=== PATIENT | female | born 1980 | race African-American/Black ===

== ENCOUNTER 2017-09-27 20:18 | Inpatient (IN) | payer OTHER ==
[~2017-09-27] VITALS: Ht 175.3 cm; Wt 72.6 kg
--- NOTE | ~2017-09-27 | PATH ---
[facility] [place] [address] PATHOLOGY RPT PROCEDURE Name: CRYSTAL RAY Shilpa Room #: 450-P [facility] IN M.R.#: [id number] Admission: 09/27/17 Date of : 76 Discharge: 10/01/17 Report #: [id number] Path Case #: [id number] [facility] Accession Number: [id number] . 01 Material submitted: . ENDOMETRIUM . 01 Clinical history: . Severe anemia . 02 Diagnosis: Uterus, endometrial biopsy: - Glandular and stromal breakdown. - Negative for hyperplasia, atypia or malignancy. - Specimen predominantly (90% comprised of blood), history of heavy menstruation. (IUV:michael; 10/02/2017) QMS/10/02/2017 . 02 Electronically signed: . Ciera Muñoz MD, Pathologist NPI- [id number] . 01 Gross description: . Received in formalin labeled "Kynyatta Lilly, endometrium" and consists of a 3.0 x 3.0 x 2.0 cm aggregate of dark red tissue and blood clot which is entirely submitted A1-A4. (SOO; 10/01/2017) JBR/JBR . 02 Pathologist provided ICD-10: N85.9, D64.9 . 02 CPT . 884828 Performed at: [address], [place] [id number] MD Stone Davis MD Phone: [phone] Performed at: [address] [id number] MD Ciera Muñoz MD Phone: [phone]
--- NOTE | ~2017-09-27 | EKG ---
[address] [place] [place] [address] ELECTROCARDIOGRAM REPORT Name: CRYSTAL RAY Room #: 450-P [facility] IN [facility].#: [id number] Admission: 09/27/17 Attend Phys: Power Michael MD Discharge: Date of : 76 Report #: [id number] THIS REPORT FOR: //name// [facility] ED Test Date: 2017-09-27 Test Time: 22:06:56 Pat Name: CRYSTAL RAY Department: Room: Gender: F Library Circulation Assistant: AIDAN : 1980 Requested By: Tu Coon Order Number: [id number] MD: Emerson Will Measurements Intervals [place] Rate: 83 P: 64 NE: 162 QRS: 60 QRSD: 96 T: 28 QT: 372 QTc: 437 Interpretive Statements Sinus rhythm Normal tracing No previous ECG available for comparison Electronically Signed On 09-29-2017 14:00:33 CDT by Emerson Will [email or web address] <ELECTRONICALLY SIGNED> By: Emerson Will MD, [facility]IN [facility] 09/29/17 1400 2206 2206 Emerson Will MD, FACC /EPI
[2017-09-27 21:45] LABS: MCH 16.8 pg (26.0-34.0)
[2017-09-27 21:47] LABS: HEMATOCRIT 21.6 % (37.0-47.0); MCHC 29.3 g/dL (28.0-37.0); MCV 57.2 fL (80.0-100.0); PLATELET COUNT 277 thou/uL (150-400); RBC 3.78 mil/uL (4.20-5.00); RDW 22.3 % (10.5-14.5); WBC 6.2 thou/uL (4.0-11.0)
[2017-09-27 21:51] LABS: HEMOGLOBIN 6.3 gm/dL (12.0-15.0)
[2017-09-27 21:51] LABS: URINE BILIRUBIN NEGATIVE (Negative); URINE BLOOD 3+ (Negative); URINE CLARITY CLEAR; URINE COLOR YELLOW; URINE GLUCOSE-RANDOM* NEGATIVE (Negative); URINE KETONES NEGATIVE (Negative); URINE LEUKOCYTES-REFLEX NEGATIVE (Negative); URINE PROTEIN (DIPSTICK) TRACE (Negative); URINE SPECIFIC GRAVITY >= 1.030 (1.005-1.035); URINE UROBILINOGEN 0.2 E.U./dl (0.2-1.0)
[2017-09-27 21:53] LABS: URINE NITRITE-REFLEX POSITIVE (Negative)
[2017-09-27 21:58] LABS: AMORPHOUS URATES Many /LPF (None Seen); CASTS None Seen /LPF (None Seen); SQUAMOUS 0-3 Few /LPF (0-3); URINE RBC 3-10 Few /HPF (0-2)
[2017-09-27 21:59] LABS: URINE WBC-REFLEX 0-5 Rare /HPF (0-5)
[2017-09-27 22:19] LABS: ABSOLUTE NEUTROPHILS 3.8 thou/uL (1.4-8.2)
[2017-09-27 22:21] LABS: ANISOCYTOSIS 2+; OVALOCYTES FEW; SCHISTOCYTES OCCASIONAL
[2017-09-27 22:22] LABS: HYPOCHROMASIA 2+; MICROCYTES 3+; POLYCHROMASIA OCCASIONAL
[2017-09-27 22:37] LABS: INR 1.1; PROTIME 11.3 Seconds (9.3-11.4)
[2017-09-27 23:00] VITALS: BP 109/64
[2017-09-27 23:16] LABS: ANION GAP 10 mmol/L (7-16); BUN 9 mg/dL (7-18); CALCIUM 8.1 mg/dL (8.5-10.1); CHLORIDE 106 mmol/L (98-107); CO2 24 mmol/L (21-32); CREATININE 0.8 mg/dL (0.6-1.0); GLUCOSE 93 mg/dL (74-106); POTASSIUM 3.2 mmol/L (3.5-5.1); SODIUM 140 mmol/L (136-145)
[2017-09-27 23:20] LABS: ABSOLUTE RETIC COUNT 0.0462 10^6/uL; OBSERVED RETIC COUNT 1.2 % (0.6-2.6)
[2017-09-27 23:24] LABS: ALBUMIN 3.6 g/dL (3.4-5.0); DIRECT BILIRUBIN < 0.1 mg/dL (<0.1-0.3); MAGNESIUM 1.8 mg/dL (1.8-2.4); SGOT 21 U/L (15-37); SGPT 14 U/L (30-65); TOTAL BILIRUBIN 0.3 mg/dL (<0.1-1.0); TOTAL PROTEIN 7.4 g/dL (6.4-8.2); TROPONIN-I <0.06 ng/mL (<0.06)
[2017-09-27 23:25] VITALS: BP 95/55
[2017-09-27 23:31] LABS: % SATURATION 3 % (20-39); IRON 13 ug/dL (50-170); TIBC 385 ug/dL (250-450)
[2017-09-27 23:58] VITALS: BP 108/69
[2017-09-28 00:24] LABS: FERRITIN < 1.0 ng/mL (8-252); FOLIC ACID 16.2 ng/mL (8.6-58.9)
[2017-09-28 02:27] VITALS: BP 104/64
[2017-09-28 04:02] VITALS: BP 97/66
[2017-09-28 05:33] LABS: HEMATOCRIT 23.8 % (37.0-47.0); HEMOGLOBIN 7.1 gm/dL (12.0-15.0); MCH 17.9 pg (26.0-34.0); MCHC 29.9 g/dL (28.0-37.0); MCV 59.9 fL (80.0-100.0); RBC 3.97 mil/uL (4.20-5.00); WBC 4.9 thou/uL (4.0-11.0)
[2017-09-28 05:51] LABS: CALCIUM 7.9 mg/dL (8.5-10.1); CREATININE 0.8 mg/dL (0.6-1.0); POTASSIUM 3.4 mmol/L (3.5-5.1)
[2017-09-28 07:20] VITALS: BP 91/54
[2017-09-28 16:00] VITALS: BP 107/66
[2017-09-28 19:25] VITALS: BP 102/60
[2017-09-29 04:00] VITALS: BP 103/65
[2017-09-29 05:27] LABS: HEMATOCRIT 23.8 % (37.0-47.0); HEMOGLOBIN 7.2 gm/dL (12.0-15.0); MCH 18.4 pg (26.0-34.0); MCHC 30.3 g/dL (28.0-37.0); MCV 60.7 fL (80.0-100.0); RBC 3.92 mil/uL (4.20-5.00); RDW 24.7 % (10.5-14.5); WBC 5.6 thou/uL (4.0-11.0)
[2017-09-29 05:41] LABS: ALBUMIN 3.1 g/dL (3.4-5.0); CALCIUM 8.1 mg/dL (8.5-10.1); CREATININE 0.7 mg/dL (0.6-1.0); TOTAL BILIRUBIN 0.1 mg/dL (<0.1-1.0); TOTAL PROTEIN 6.9 g/dL (6.4-8.2)
[2017-09-29 07:12] VITALS: BP 88/49
[2017-09-29 15:18] VITALS: BP 103/62
[2017-09-29 19:04] VITALS: BP 111/69
[2017-09-30 04:27] VITALS: BP 103/63
[2017-09-30 05:48] LABS: HEMATOCRIT 24.9 % (37.0-47.0); HEMOGLOBIN 7.4 gm/dL (12.0-15.0); MCH 18.4 pg (26.0-34.0); MCHC 29.6 g/dL (28.0-37.0); MCV 62.2 fL (80.0-100.0); WBC 6.7 thou/uL (4.0-11.0)
[2017-09-30 08:00] VITALS: BP 103/62
[2017-09-30 16:00] VITALS: BP 100/63
[2017-09-30 19:01] VITALS: BP 108/72
[2017-10-01 03:54] VITALS: BP 111/62
[2017-10-01 08:00] VITALS: BP 104/61
[2017-10-01 10:06] LABS: HEMATOCRIT 27.1 % (37.0-47.0); MCH 18.6 pg (26.0-34.0); MCHC 29.3 g/dL (28.0-37.0); MCV 63.4 fL (80.0-100.0); RBC 4.29 mil/uL (4.20-5.00); WBC 9.3 thou/uL (4.0-11.0)
[2017-10-01 10:19] LABS: ALBUMIN 3.6 g/dL (3.4-5.0); CALCIUM 8.8 mg/dL (8.5-10.1); CREATININE 0.7 mg/dL (0.6-1.0); MAGNESIUM 1.7 mg/dL (1.8-2.4); POTASSIUM 3.3 mmol/L (3.5-5.1); TOTAL BILIRUBIN 0.1 mg/dL (<0.1-1.0); TOTAL PROTEIN 7.7 g/dL (6.4-8.2)
[2017-10-01] MEDS ORDERED: PROVERA10 MG PO (11:34)
[2017-10-01] MEDS ORDERED: IRON325 PO (11:35)
[2017-10-01 11:47] VITALS: BP 104/61
[2017-10-01 12:13] LABS: HGB SOLUBILITY Negative (Negative)
== END 2017-10-01 12:50 | disposition home or self-care (01) | DRG 760 ==
LOC: ER 20:18 → EROBS 22:00 → 4W 22:00
PROVIDERS: Emergency Medicine; Hospitalist; Internal Medicine; Nurse Practitioner Family
PROC: 30233N1 Transfusion of Nonautologous Red Blood Cells into Peripheral Vein, Percutaneous Approach (ICD-10-PCS; principal; 2017-09-28)
DX: N92.0 Excessive and frequent menstruation with regular cycle (principal); N39.0 Urinary tract infection, site not specified; D50.0 Iron deficiency anemia secondary to blood loss (chronic); F17.210 Nicotine dependence, cigarettes, uncomplicated; Z91.14 Patient's other noncompliance with medication regimen; Z83.3 Family history of diabetes mellitus; Z82.5 Family history of asthma and other chronic lower respiratory diseases; Z83.79 Family history of other diseases of the digestive system
CPT/HCPCS: 10040

== ENCOUNTER 2018-01-06 10:37 | Emergency (ER) | payer OTHER ==
[~2018-01-06] VITALS: Ht 175.3 cm; Wt 83.9 kg
--- NOTE | ~2018-01-06 | EKG ---
[address] [address] ELECTROCARDIOGRAM REPORT Name: CRYSTAL RAY Room #: [facility]#: [id number] Admission: 01/06/18 Attend Phys: Discharge: 01/06/18 Date of : 76 Report #: [id number] THIS REPORT FOR: //name// [facility] ED Test Date: 2018-01-06 Test Time: 11:23:00 Pat Name: CRYSTAL RAY Department: Room: Gender: F Pre Press Proofer: rachael : 1980 Requested By: Tu Coon Order Number: [id number] MD: Srinivasa Tidwell Measurements Intervals [place] Rate: 94 P: 54 CT: 141 QRS: 33 QRSD: 92 T: 32 QT: 353 QTc: 442 Interpretive Statements Sinus rhythm Compared to ECG 09/27/2017 22:06:56 No significant changes Electronically Signed On 01-07-2018 17:04:56 CDT by Srinivasa Tidwell [email or web address] <ELECTRONICALLY SIGNED> By: Srinivasa Tidwell MD 01/07/18 1704 1123 22 Srinivasa Tidwell MD /GUS
[~2018-01-06 10:37] MED LIST: IRON325 PO; PROVERA10 MG PO
[2018-01-06 11:09] LABS: URINE BILIRUBIN NEGATIVE (Negative); URINE BLOOD NEGATIVE (Negative); URINE CLARITY CLEAR; URINE COLOR YELLOW; URINE GLUCOSE-RANDOM* NEGATIVE (Negative); URINE KETONES NEGATIVE (Negative); URINE LEUKOCYTES-REFLEX 1+ (Negative); URINE NITRITE-REFLEX NEGATIVE (Negative); URINE PROTEIN (DIPSTICK) NEGATIVE (Negative); URINE SPECIFIC GRAVITY 1.015 (1.005-1.035); URINE UROBILINOGEN 0.2 E.U./dl (0.2-1.0)
[2018-01-06 11:28] LABS: CASTS None Seen /LPF (None Seen); CRYSTALS None Seen /LPF (None Seen); SQUAMOUS >10 Many /LPF (0-3)
[2018-01-06 11:31] LABS: URINE RBC None Seen /HPF (0-2); URINE WBC-REFLEX 6-15 Few /HPF (0-5)
[2018-01-06 11:32] LABS: BACTERIA-REFLEX 1-9 Few /HPF (None Seen)
[2018-01-06 12:07] LABS: ABSOLUTE NEUTROPHILS 3.9 thou/uL (1.4-8.2); BASOPHILS 1.4 % (0.0-2.0); EOSINOPHILS 2.2 % (0.0-3.0); HEMATOCRIT 30.2 % (37.0-47.0); LYMPHOCYTES 30.2 % (24.0-44.0); MCH 27.9 pg (26.0-34.0); MCHC 33.1 g/dL (28.0-37.0); MCV 84.2 fL (80.0-100.0); MONOCYTES 5.6 % (1.0-8.0); PLATELET COUNT 244 thou/uL (150-400); POLYS 60.6 % (36.0-66.0); RBC 3.59 mil/uL (4.20-5.00); RDW 13.8 % (10.5-14.5); WBC 6.4 thou/uL (4.0-11.0)
[2018-01-06 12:58] LABS: ANION GAP 9 mmol/L (7-16); BUN 5 mg/dL (7-18); CALCIUM 8.7 mg/dL (8.5-10.1); CHLORIDE 104 mmol/L (98-107); CO2 22 mmol/L (21-32); CREATININE 0.4 mg/dL (0.6-1.0); GLUCOSE 90 mg/dL (74-106); POTASSIUM 4.3 mmol/L (3.5-5.1)
[2018-01-06] MEDS ORDERED: AMOXICILLIN 50500 M1 PO (12:58)
[2018-01-06 13:00] LABS: SODIUM 135 mmol/L (136-145)
[2018-01-06 13:07] LABS: SGOT 29 U/L (15-37); SGPT 21 U/L (30-65); TOTAL BILIRUBIN 0.2 mg/dL (<0.1-1.0); TOTAL PROTEIN 7.1 g/dL (6.4-8.2)
[2018-01-06 13:08] LABS: ALBUMIN 3.2 g/dL (3.4-5.0); TROPONIN-I <0.06 ng/mL (<0.06)
[2018-01-06 13:18] LABS: ANISOCYTOSIS 2+; LARGE PLATELETS FEW; OVALOCYTES 1+; PLATELET ESTIMATE NORMAL; POIKILOCYTOSIS SLIGHT; POLYCHROMASIA SLIGHT; SCHISTOCYTES OCCASIONAL
== END 2018-01-06 13:50 | disposition home or self-care (01) ==
LOC: ER 10:37
PROVIDERS: Emergency Medicine
DX: N39.0 Urinary tract infection, site not specified (principal); D50.9 Iron deficiency anemia, unspecified; F17.210 Nicotine dependence, cigarettes, uncomplicated; R42 Dizziness and giddiness; R06.00 Dyspnea, unspecified; R53.83 Other fatigue

== ENCOUNTER 2019-01-05 11:58 | Emergency (ER) | payer OTHER ==
[~2019-01-05] VITALS: Ht 175.3 cm; Wt 77.1 kg
[~2019-01-05 11:58] MED LIST changes: +AMOXICILLIN 50500 M1 PO
[2019-01-05 12:29] LABS: URINE BILIRUBIN NEGATIVE (Negative); URINE BLOOD NEGATIVE (Negative); URINE CLARITY CLEAR; URINE COLOR YELLOW; URINE GLUCOSE-RANDOM* NEGATIVE (Negative); URINE KETONES NEGATIVE (Negative); URINE LEUKOCYTES-REFLEX NEGATIVE (Negative); URINE NITRITE-REFLEX NEGATIVE (Negative); URINE PROTEIN (DIPSTICK) NEGATIVE (Negative)
[2019-01-05 13:09] LABS: ABSOLUTE NEUTROPHILS 4.1 thou/uL (1.4-8.2); BASOPHILS 0.9 % (0.0-2.0); EOSINOPHILS 2.1 % (0.0-3.0); HEMATOCRIT 34.9 % (37.0-47.0); HEMOGLOBIN 10.9 gm/dL (12.0-15.0); LYMPHOCYTES 29.2 % (24.0-44.0); MCH 26.2 pg (26.0-34.0); MCHC 31.3 g/dL (28.0-37.0); MCV 83.7 fL (80.0-100.0); MONOCYTES 6.3 % (1.0-8.0); POLYS 61.5 % (36.0-66.0); RBC 4.16 mil/uL (4.20-5.00); WBC 6.6 thou/uL (4.0-11.0)
[2019-01-05 13:17] LABS: ANION GAP 9 mmol/L (7-16); BUN 6 mg/dL (7-18); CHLORIDE 103 mmol/L (98-107); CO2 26 mmol/L (21-32); GLUCOSE 94 mg/dL (74-106); POTASSIUM 3.7 mmol/L (3.5-5.1); SODIUM 138 mmol/L (136-145)
[2019-01-05 13:27] LABS: SGOT 13 U/L (15-37); SGPT 19 U/L (30-65); TOTAL BILIRUBIN 0.2 mg/dL (<0.1-1.0); TOTAL PROTEIN 8.3 g/dL (6.4-8.2); TROPONIN-I <0.06 ng/mL (<0.06)
[2019-01-05 13:39] LABS: ANISOCYTOSIS 1+; LARGE PLATELETS RARE; PLATELET COUNT 285 thou/uL (150-400)
[2019-01-05] MEDS ORDERED: HYDROXYZINE HCL25 M2 PO (14:13)
[2019-01-05 14:24] VITALS: BP 118/71
--- NOTE | 2019-01-06 07:55 | EKG ---
[address] [address] ELECTROCARDIOGRAM REPORT Name: CRYSTAL RAY Room #: [facility]#: [id number] Admission: 01/05/19 Attend Phys: Discharge: 01/05/19 Date of : [birth year] Report #: [id number] THIS REPORT FOR: //name// [facility] ED Test Date: 2019-01-05 Test Time: 12:43:38 Pat Name: CRYSTAL RAY Department: Room: Gender: F Underground Utility Locator: MAXIMINO : 1980 Requested By: Agnieszka Byers Order Number: [id number] MD: Emerson Will Measurements Intervals [place] Rate: 73 P: 60 [place]: 157 QRS: 48 QRSD: 84 T: 33 QT: 376 QTc: 415 Interpretive Statements Sinus rhythm Normal tracing Compared to ECG 01/06/2018 11:23:00 No significant changes Electronically Signed On 01-06-2019 7:55:22 CDT by Emerson Will [email or web address] <ELECTRONICALLY SIGNED> By: Emerson Will MD, [facility] 01/06/19 0755 1243 1243 Emerson Will MD, FACC /EPI
== END 2019-01-05 14:37 | disposition home or self-care (01) ==
LOC: ER 11:58
PROVIDERS: Nurse Practitioner Family
DX: F41.9 Anxiety disorder, unspecified (principal); R42 Dizziness and giddiness; F17.210 Nicotine dependence, cigarettes, uncomplicated; Z86.2 Personal history of diseases of the blood and blood-forming organs and certain disorders involving the immune mechanism

== ENCOUNTER 2019-03-18 19:29 | Emergency (ER) | payer OTHER ==
[~2019-03-18] VITALS: Ht 175.3 cm; Wt 83.9 kg
[~2019-03-18 19:29] MED LIST changes: +HYDROXYZINE HCL25 M2 PO
[2019-03-18 19:52] LABS: URINE BILIRUBIN NEGATIVE (Negative); URINE BLOOD TRACE (Negative); URINE CLARITY CLEAR; URINE COLOR YELLOW; URINE GLUCOSE-RANDOM* NEGATIVE (Negative); URINE KETONES NEGATIVE (Negative); URINE PROTEIN (DIPSTICK) TRACE (Negative); URINE UROBILINOGEN 0.2 E.U./dl (0.2-1.0)
[2019-03-18 19:53] LABS: URINE LEUKOCYTES-REFLEX 3+ (Negative); URINE NITRITE-REFLEX POSITIVE (Negative)
[2019-03-18 20:01] LABS: BACTERIA-REFLEX >30 Many /HPF (None Seen); URINE WBC-REFLEX >25 Many /HPF (0-5)
[2019-03-18 20:02] LABS: CASTS None Seen /LPF (None Seen); CRYSTALS None Seen /LPF (None Seen); SQUAMOUS 0-3 Few /LPF (0-3); URINE RBC None Seen /HPF (0-2)
[2019-03-18] MEDS ORDERED: KEFLEX500 M2 PO (20:29)
[2019-03-18 21:00] VITALS: BP 95/69
== END 2019-03-18 21:00 | disposition home or self-care (01) ==
LOC: ER 19:29
PROVIDERS: Physician Assistant
DX: N39.0 Urinary tract infection, site not specified (principal); R50.9 Fever, unspecified; F17.210 Nicotine dependence, cigarettes, uncomplicated; Z86.2 Personal history of diseases of the blood and blood-forming organs and certain disorders involving the immune mechanism